=== PATIENT | male | born 1960 | race Caucasian/White ===

== ENCOUNTER 2016-10-31 05:54 | Day surgery (SDC) | payer BC ==
[2016-10-24 11:55] LABS: BASOPHILS 0.3 %; BASOPHILS ABSOLUTE 0.03 10/3/uL (0.0-0.16); EOSINOPHILS 1.3 %; EOSINOPHILS ABSOLUTE 0.12 10/3/uL (0.0-0.53); HEMATOCRIT 40.8 % (40.0-51.0); HEMOGLOBIN 14.4 g/dL (13.6-17.8); IMMATURE GRANULOCYTES 0.3 %; IMMATURE GRANULOCYTES ABSOLUTE 0.03 10/3/uL (0.0-0.11); LYMPHOCYTES 34.5 %; LYMPHOCYTES ABSOLUTE 3.24 10/3/uL (0.67-4.30); MANUAL DIFF NO %; MEAN CORPUS HGB CONC 35.3 g/dL (32.0-36.0); MEAN CORPUSCULAR HEMOGLOB 31.3 pg (26.0-34.0); MEAN CORPUSCULAR VOLUME 88.7 fL (80-100); MEAN PLATELET VOLUME 9.4 fL (9.2-13.0); MONOCYTES 6.3 %; MONOCYTES ABSOLUTE 0.59 10/3/uL (0.21-1.20); NEUTROPHILS 57.3 %; NEUTROPHILS ABSOLUTE 5.38 10/3/uL (2.02-8.40); PLATELET COUNT 181 10/3/uL (150-400); RBC DISTRIBUTION WIDTH 13.9 % (12.0-16.0); WHITE BLOOD CELLS 9.4 10/3/uL (4.5-10.5)
[2016-10-24 12:10] LABS: BUN (BLOOD UREA NITROGEN) 7 MG/DL (6-23); CALCIUM, SERUM 8.4 MG/DL (8.5-10.4); CHLORIDE, SERUM 107 MMOL/L (96-112); CO2 (CARBON DIOXIDE) 26 MMOL/L (24-34); CREATININE 1.03 MG/DL (0.70-1.30); GFR AFRICAN AMERICAN 94 ML/MIN (>=60); GFR NON AFRICAN AMERICAN 81 ML/MIN (>=60); GLUCOSE, SERUM 98 MG/DL (60-99); POTASSIUM, SERUM 3.6 MMOL/L (3.5-5.3); PROSTATIC SPECIFIC AG 0.94 NG/ML (0.0-3.5); SODIUM, SERUM 141 MMOL/L (135-148)
[2016-10-24 12:22] LABS: ASCORBIC ACID (UR NOT ORDER) NEG (NEG); BILIRUBIN, URINE NEGATIVE (NEG); KETONE, URINE NEGATIVE (NEG); LEUKOCYTE ESTERASE(NOT OR NEG (NEG); WBC (NOT ORDERED) (RFLEX) 1 (0-5)
--- NOTE | ~2016-10-31 | OP ---
Record Of Operation [facility] [address] [place]. [address] NAME: AMARIS BHAGAT : 60 STATUS : REG [facility]#: [id number] AGE: 56 ADM/REG DATE : 10/31/16 MR#: [id number] REPORT SERV DATE: 10/31/16 DICTATED BY: KAPIL SMITH DATE: 10/31/16 REPORT STATUS : Draft TRANSCRIBED BY: MODL DATE: 10/31/16 DATE OF PROCEDURE: 10/31/2016 PREOPERATIVE DIAGNOSIS: A 1-cm left lower pole renal calculus. POSTOPERATIVE DIAGNOSIS: A 1-cm left lower pole renal calculus. PROCEDURE: Extracorporal shockwave lithotripsy of left renal calculus. SURGEON: Kapil Smith M.D. ANESTHESIA: General endotracheal. ESTIMATED BLOOD LOSS: None. DRAINS: None. INDICATIONS: Mr. Bhagat is a 56-year-old male with a 1-cm left lower pole renal calculus. TECHNIQUE: The patient was identified, brought to the lithotripsy table. He was laid on the [employer] Lithotripter, administered general anesthetic agent by the Anesthesia Service. The stone was identified with fluoroscopy and the beam was focused on the stone using biplanar fluoroscopy. I would initiate shockwave therapy starting at energy level 1.0 and advancing to an energy level of 4.0. A total of 2500 shocks were delivered. Intermittent fluoroscopy was used to remain focused on the stone. The stone appeared to fragment. There were no immediate complications. The patient was awakened and taken to the recovery unit in stable and satisfactory condition. PF/PIPPA Kapil Smith M.D. / [id number] CC: Heavenly Brito D.O.
[~2016-10-31 05:54] MED LIST: BUSPAR15 M1 PO; CLARIT10 PO; FLOMAX4 PO; LORT7 PO; LORTAB10 PO; ZOL100 PO
== END 2016-10-31 17:31 | disposition home or self-care (01) ==
LOC: SDC 05:54
PROVIDERS: Urology
PROC: 0TF4XZZ Fragmentation in Left Kidney Pelvis, External Approach (ICD-10-PCS; principal; 2016-10-31 08:00)
DX: N20.0 Calculus of kidney (principal); G47.33 Obstructive sleep apnea (adult) (pediatric); K21.9 Gastro-esophageal reflux disease without esophagitis; E04.1 Nontoxic single thyroid nodule; M19.90 Unspecified osteoarthritis, unspecified site; F32.9 Major depressive disorder, single episode, unspecified; Z87.891 Personal history of nicotine dependence; Z86.010 Personal history of colon polyps; Z90.49 Acquired absence of other specified parts of digestive tract; Z98.890 Other specified postprocedural states; Z87.438 Personal history of other diseases of male genital organs
CPT/HCPCS: 50590; 74000; 80048; 81001; 84153; 85025; 93005; A9270-GY; J2405; J2710; J3010